=== PATIENT | female | born 1960 | race Caucasian/White ===

== ENCOUNTER 2017-03-06 18:10 | Emergency (ER) | payer OTHER ==
[~2017-03-06] VITALS: Ht 157.5 cm; Wt 68.8 kg
[~2017-03-06 18:10] MED LIST: ACETAMIN OR; ACTOS30 MG OR; AMOXICILLIN500 MG PO; ATENOLOL50 MG OR; AUGMENTIN875 MG OR; AUGMENTIN875TAB PO; BABY ASPIRIN81 MG OR; FLAGYL500 MG OR; FLEXERIL5 M1 PO; GLIMEPIRIDE4 MG PO; INVOKANA100 MG PO; LANTUS100 MG/ML SC; LEVOTHROID137 MCG PO; LEVOTHYROXIN125 MCG PO; LORTAB 5 OR; LORTAB 7.5 OR; LORTAB5 PO; MEDDOSEPAK PO; METFORMIN500 M1 OR; METFORMIN500 MG OR; NOVOLIN 70/30 SC; NOVOLIN 701000 UNITS SC; NOVOLIN R IJ; OMEPRAZOLE20 MG PO; PERCOCET 5/325M1 TAB OR; PREVACID30 M1 OR; RELION 70/30 SC; SIMVASTATIN40 MG PO; TYLENOL OR; ULTRAM50 M1 PO; ULTRAM50 MG PO; ZESTRIL10 M1 OR; ZOFRAN ODT8 MG OR; ZPAK OR
[2017-03-06] MEDS ORDERED: LEVOTHYROXIN137 MCG PO (18:22)
[2017-03-06] MEDS ORDERED: INVOKANA300 MG (18:24)
[2017-03-06] MEDS ORDERED: CYCLOBENZAPR10 MG PO (18:25)
[2017-03-06] MEDS ORDERED: ROPINIROLE0.5 MG PO (18:25)
[2017-03-06] MEDS ORDERED: SEPTRA4001 PO (18:59)
[2017-03-06] MEDS ORDERED: AUGMENTIN875TAB PO (18:59)
[2017-03-06] MEDS ORDERED: TORADOL PO (18:59)
[2017-03-06 19:31] VITALS: BP 128/76
== END 2017-03-06 19:39 | disposition home or self-care (01) | DRG 603 ==
LOC: ED 18:10
DX: L02.224 Furuncle of groin (principal)

== ENCOUNTER 2018-05-13 12:08 | Emergency (ER) | payer OTHER ==
[~2018-05-13] VITALS: Ht 157.5 cm; Wt 66.0 kg
[~2018-05-13 12:08] MED LIST changes: +CYCLOBENZAPR10 MG PO; +INVOKANA300 MG; +LEVOTHYROXIN137 MCG PO; +ROPINIROLE0.5 MG PO; +SEPTRA4001 PO; +TORADOL PO
[2018-05-13] MEDS ORDERED: METOPROL TAR25 MG PO (12:24)
[2018-05-13 12:57] LABS: URINE BILIRUBIN - DIPSTICK NEGATIVE (NEGATIVE); URINE BLOOD DIPSTICK NEGATIVE (NEGATIVE); URINE COLOR YELLOW; URINE GLUCOSE - DIPSTICK >=1000 mg/dL (NEGATIVE); URINE KETONE TRACE mg/dL (NEGATIVE); URINE LEUK ESTERASE NEGATIVE (NEGATIVE); URINE NITRITE - DIPSTICK NEGATIVE (Negative); URINE PH 6.5 (4.5-8.0); URINE PROTEIN - DIPSTICK NEGATIVE (NEG-TRACE); URINE UROBILINOGEN - DIPSTICK 0.2 E.U./dL (0.2)
[2018-05-13 13:13] LABS: HEMATOCRIT 35.6 % (37.0-47.0); IMMATURE GRANULOCYTES 0.9 % (0.0-5.0); MEAN CELL VOLUME 84.2 fL CALC (80.0-100.0); MEAN CORPUSCULAR HGB 28.4 pG CALC (26.0-32.0); MEAN CORPUSCULAR HGB CONC 33.7 g/L CALC (32.0-36.0); NEUT# 3.39 thou/uL (2.00-7.15); RED BLOOD COUNT 4.23 mill/uL (4.20-5.60); RED CELL DISTRI WIDTH 13.1 % (11.5-15.5)
[2018-05-13 13:25] LABS: ALBUMIN 4.3 g/dL (3.2-5.0); ALKALINE PHOSPHATASE 102 u/l (38-126); ANION GAP 20 (6-22 (CALC)); BILIRUBIN, TOTAL 0.6 mg/dL (0.0-1.4); BUN 22 mg/dL (7-17); BUN/CREATININE RATIO 33 (12-20 (CALC)); CARBON DIOXIDE 20 mmol/l (22-30); CHLORIDE 101 mmol/l (95-108); CREATININE 0.6 mg/dL (0.5-1.0); GFR > 60 ML/MIN (>=60 (CALC)); GFR FOR AFR.AMER. > 60 ML/MIN (>=60 (CALC)); POTASSIUM 4.4 mmol/l (3.5-5.1); SGOT/AST 46 u/l (14-36); SODIUM 137 mmol/l (137-146); TOTAL PROTEIN 8.2 g/dL (6.3-8.2)
[2018-05-13 13:36] LABS: MYOGLOBIN 163 ng/mL (0 - 62)
[2018-05-13 16:09] LABS: BARBITURATES NEGATIVE (NEGATIVE); COCAINE NEGATIVE (NEGATIVE); METHADONE NEGATIVE (NEGATIVE); OXCYCODONE NEGATIVE (NEGATIVE); TETRAHYDROCANNABIONOL NEGATIVE (NEGATIVE); TRICYLIC ANTIDEPRESSANTS POSITIVE (NEGATIVE)
[2018-05-13] MEDS ORDERED: ANTIVERT PO (17:26)
[2018-05-13 17:38] VITALS: BP 125/75
== END 2018-05-13 17:38 | disposition home or self-care (01) | DRG 607 ==
LOC: ED 12:08 → ED-I 14:38 → ED 17:38
DX: R21 Rash and other nonspecific skin eruption (principal); F41.9 Anxiety disorder, unspecified; H81.09 Meniere's disease, unspecified ear; I10 Essential (primary) hypertension; E11.9 Type 2 diabetes mellitus without complications; Z95.5 Presence of coronary angioplasty implant and graft
CPT/HCPCS: J2060; Q9967

== ENCOUNTER 2019-01-18 00:03 | Emergency (ER) | payer OTHER ==
[~2019-01-18] VITALS: Ht 157.5 cm; Wt 68.2 kg
[~2019-01-18 00:03] MED LIST changes: +ANTIVERT PO; +METOPROL TAR25 MG PO
[2019-01-18 01:09] LABS: IMMATURE GRANULOCYTES 0.2 % (0.0-5.0); MEAN CORPUSCULAR HGB 23.9 pG CALC (26.0-32.0); MEAN CORPUSCULAR HGB CONC 30.8 g/L CALC (32.0-36.0); NEUT# 2.74 thou/uL (2.00-7.15); RED BLOOD COUNT 3.52 mill/uL (4.20-5.60); RED CELL DISTRI WIDTH 16.6 % (11.5-15.5)
[2019-01-18 01:10] LABS: HEMATOCRIT 27.3 % (37.0-47.0); HEMOGLOBIN 8.4 g/dl (12.0-16.0); MEAN CELL VOLUME 77.6 fL CALC (80.0-100.0)
[2019-01-18 01:26] LABS: ALKALINE PHOSPHATASE 85 u/l (38-126); ANION GAP 15 (6-22 (CALC)); BUN 24 mg/dL (8-23); BUN/CREATININE RATIO 22 (12-20 (CALC)); CARBON DIOXIDE 24 mmol/l (22-30); CHLORIDE 103 mmol/l (95-108); CREATININE 1.1 mg/dL (0.5-1.0); GFR 50 ML/MIN (>=60 (CALC)); GFR FOR AFR.AMER. > 60 ML/MIN (>=60 (CALC)); POTASSIUM 4.5 mmol/l (3.5-5.1); SGOT/AST 35 u/l (9-36); SODIUM 138 mmol/l (137-146); TOTAL PROTEIN 7.2 g/dL (6.3-8.2)
[2019-01-18 01:27] LABS: BILIRUBIN, TOTAL 0.2 mg/dL (0.0-1.4)
[2019-01-18] MEDS ORDERED: FERROUS SULF325 M3 PO (02:19)
[2019-01-18] MEDS ORDERED: TORADOL PO (02:19)
[2019-01-18] MEDS ORDERED: ELAVIL50 MG PO (02:19)
[2019-01-18 02:40] VITALS: BP 110/60
== END 2019-01-18 02:40 | disposition home or self-care (01) | DRG 74 ==
LOC: ED 00:03
PROVIDERS: Family Medicine
DX: E11.42 Type 2 diabetes mellitus with diabetic polyneuropathy (principal); Z79.84 Long term (current) use of oral hypoglycemic drugs; D64.9 Anemia, unspecified; M79.672 Pain in left foot; M79.671 Pain in right foot

== ENCOUNTER 2019-06-09 | Emergency (ER) | payer SELFPAY ==
[~2019-06-09] MED LIST changes: +ELAVIL50 MG PO; +FERROUS SULF325 M3 PO; +GABAPENTIN100 MG PO; +HYDROXYZINE HCL25 M1 PO; +OZEMPIC2 MG/1.5 M; +TRAZODONE50 MG PO
[2019-06-09] MEDS ORDERED: ULTRAM50 M1 PO (22:33)
== END 2019-06-09 22:44 | disposition home or self-care (01) | DRG 605 ==
DX: S50.02XA Contusion of left elbow, initial encounter (principal); S20.212A Contusion of left front wall of thorax, initial encounter; I10 Essential (primary) hypertension; E11.9 Type 2 diabetes mellitus without complications; W01.0XXA Fall on same level from slipping, tripping and stumbling without subsequent striking against object, initial encounter; Y92.481 Parking lot as the place of occurrence of the external cause; Z79.84 Long term (current) use of oral hypoglycemic drugs

== ENCOUNTER 2019-08-11 21:20 | Inpatient (IN) | payer OTHER ==
[~2019-08-11] VITALS: Ht 157.5 cm; Wt 60.0 kg
--- NOTE | 2019-08-11 21:30 | NUR ---
TO ROOM 15 VIA W/C. AT BEDSIDE
--- NOTE | 2019-08-11 22:00 | NUR ---
ANSWERING QUESTIONS. PT GIVING LITTLE INFORMATION
--- NOTE | 2019-08-11 22:40 | NUR ---
IV STARTED IN LEFT HAND BUT WILL NOT DRAW BLOOD. FLUIDS AND MEDICATION INITIATED IN SITE. TOLERATING MEDICATION WELL
--- NOTE | 2019-08-11 23:10 | NUR ---
PT TALKATIVE AND MUCH MORE ACTIVE SINCE LEFT
[2019-08-11 23:59] LABS: HEMATOCRIT 33.1 % (37.0-47.0); HEMOGLOBIN 10.9 g/dl (12.0-16.0); IMMATURE GRANULOCYTES 1.9 % (0.0-5.0); MEAN CELL VOLUME 82.3 fL CALC (80.0-100.0); MEAN CORPUSCULAR HGB 27.1 pG CALC (26.0-32.0); MEAN CORPUSCULAR HGB CONC 32.9 g/dL CAL (32.0-36.0); NEUT# 17.29 thou/uL (2.00-7.15); RED BLOOD COUNT 4.02 mill/uL (4.20-5.60); RED CELL DISTRI WIDTH 13.2 % (11.5-15.5)
--- NOTE | 2019-08-12 00:10 | NUR ---
BEDRESTING. AWAITING CT OF HEAD
[2019-08-12 00:17] LABS: URINE BILIRUBIN - DIPSTICK NEGATIVE (NEGATIVE); URINE BLOOD DIPSTICK TRACE-INTACT (NEGATIVE); URINE COLOR YELLOW; URINE GLUCOSE - DIPSTICK >=1000 mg/dL (NEGATIVE); URINE KETONE 40 mg/dL (NEGATIVE); URINE LEUK ESTERASE NEGATIVE (NEGATIVE); URINE NITRITE - DIPSTICK NEGATIVE (Negative); URINE PROTEIN - DIPSTICK NEGATIVE (NEG-TRACE); URINE SPECIFIC GRAVITY 1.015; URINE UROBILINOGEN - DIPSTICK 0.2 E.U./dL (0.2)
[2019-08-12 00:18] LABS: BARBITURATES NEGATIVE (NEGATIVE); COCAINE NEGATIVE (NEGATIVE); METHADONE NEGATIVE (NEGATIVE); OXCYCODONE NEGATIVE (NEGATIVE); TETRAHYDROCANNABIONOL NEGATIVE (NEGATIVE); TRICYLIC ANTIDEPRESSANTS POSITIVE (NEGATIVE)
[2019-08-12 00:24] LABS: ALBUMIN 3.8 g/dL (3.2-5.0); AMYLASE 37 u/l (30-110); BUN 13 mg/dL (8-23); BUN/CREATININE RATIO 32 (12-20 (CALC)); CARBON DIOXIDE 22 mmol/l (22-30); CHLORIDE 95 mmol/l (95-108); CREATININE 0.4 mg/dL (0.5-1.0); ETHYL ALCOHOL 0 mg/dl (0-30); GFR > 60 ML/MIN (>=60 (CALC)); GFR FOR AFR.AMER. > 60 ML/MIN (>=60 (CALC)); LIPASE 131 u/l (23-300); POTASSIUM 4.1 mmol/l (3.5-5.1); SGOT/AST 54 u/l (9-36); TOTAL PROTEIN 7.2 g/dL (6.3-8.2)
[2019-08-12 00:30] LABS: ALKALINE PHOSPHATASE 169 u/l (38-126); ANION GAP 17 (6-22 (CALC)); BILIRUBIN, TOTAL 0.7 mg/dL (0.0-1.4); SODIUM 130 mmol/l (137-146)
--- NOTE | 2019-08-12 00:46 | NUR ---
DRANK A CUP OF WATER-TOLERATED WELL
--- NOTE | 2019-08-12 01:38 | NUR ---
UNABLE TO TELL WHAT MEDICATIONS SHE TAKES. DOES NOT HAVE A LIST
--- NOTE | 2019-08-12 02:00 | NUR ---
HAD FORMED BOWEL MOVEMENT-BROWN IN COLOR. MIXED IN WITH URINE. UNABLE TO OBTAIN SPECIMEN
--- NOTE | 2019-08-12 03:40 | NUR ---
REPORT CALLED TO MOUNIKA
--- NOTE | 2019-08-12 03:43 | NUR ---
TO ON TELEMETRY
--- NOTE | 2019-08-12 05:30 | NUR ---
PATIENT ADMITTED FROM ER VIA STRETCHER WITH ER STAFF IN ATTENDANCE. PATIENT IS AWAKE ALERT AND ORIENTEDX3. PATIENT IS ON ISOLATION PRECAUTIONS. PATIENT ADMITTED FOR COLITIS, N/V TODAY, SOME DIARRHEA. PATIENT RECENTLY TRAVELED TO [facility] WITH HER AND STATES THAT SHE GOT "FOOD POISONING". SAW DOCTOR THERE AND WAS GIVEN MEDICATIONS. DOES'NT KNOW THE NAME OF THE MEDICATIONS. PATIENT IS ON CLEAR LIQUIDS AT THIS TIME AND PROVIDED WITH H20 AT BEDSIDE. PATIENT WITH SALINE LOCK TO LEFT HAND WITH IVF PATENT AND INFUSING AT 125CC/HR. SITE IS HEALTHY. PATIENT WITH SALINE LOCK TO RIGHT FOREARM. SITE IS HEALTHY. TELE MONITOR IN PLACE. LAB WORK WAS DRAWN ORDERED. ORIENTED TO ROOM AND SURROUNDINGS. INSTRUCTED ON USE OF THE NURSE CALL LIGHT SYSTEM, TV REMOTE AND PHONE. SAFETY PRECAUTIONS REINFORCED. INSTRUCTED ON NEED FOR SPUTUM AND STOOL SPEC WHEN ABLE TO PROVIDE. WILL CONT TO MONITOR.
[2019-08-12 05:31] LABS: HEMATOCRIT 32.9 % (37.0-47.0); HEMOGLOBIN 10.5 g/dl (12.0-16.0); MEAN CORPUSCULAR HGB 27.1 pG CALC (26.0-32.0); MEAN CORPUSCULAR HGB CONC 31.9 g/dL CAL (32.0-36.0); NEUT# 14.4 thou/uL (2.00-7.15); RED BLOOD COUNT 3.87 mill/uL (4.20-5.60); RED CELL DISTRI WIDTH 13.4 % (11.5-15.5)
--- NOTE | 2019-08-12 07:05 | NUR ---
REPORT RECEIVED FROM JENNYFER RIBERA
[2019-08-12 08:20] VITALS: BP 121/58
--- NOTE | 2019-08-12 08:20 | NUR ---
PT RESTING IN SEMI FOWLERS POSITION,A&O X3;VS OBTAINED AND ASSESSMENT COMPLETED;PT REPORTS ABDOMINAL PAIN RATING 7/10 ON THE PAIN SCALE AND NAUSEA AND REQUESTS MEDICATION,CHERELLE LEE TO BE NOTIFIED;RESPIRATIONS EVEN AND UNLABORED ON RA,CLEAR LUNG SOUNDS;ABDOMEN SOFT ON PALPATION AND ACTIVE IN ALL 4 QUADRANTS;STRONG PEDAL PULSES;SKIN INTACT;TELE MONITORING IN PLACE;#22G TO RFA INFUSING NS WITH EASE PER ORDER,#20G TO LEFT HAND FLUSHED AND PATENT;ACCUCHECK 312;PT DENIES ANY ADDITIONAL NEEDS AT THIS TIME;ENCOURAGED TO CALL FOR ASSISTANCE IF NEEDED;FALL PRECAUTIONS IN PLACE WITH CALL LIGHT IN REACH;WILL CONTINUE TO MONITOR
--- NOTE | 2019-08-12 09:35 | NUR ---
PT MEDICATED WITH PRN DILAUDID 1MG AND ZOFRAN 4MG IVP FOR NAUSEA AND ABDOMINAL PAIN RATING 7/10 ON THE PAIN SCALE,WILL CONTINUE TO MONITOR FOR EFFECTIVENESS
--- NOTE | 2019-08-12 11:30 | NUR ---
PT RESTING IN SEMI FOWLERS POSITION;RESPIRATIONS EVEN AND UNLABORED ON RA;PT REPORTS THAT PAIN HAS DECREASED SINCE PAIN MEDICATION ADMINISTRATION;TELE MONITORING IN PLACE;IV FLUIDS INFUSING WITH EASE AND ABX ADMINISTERED AT THIS TIME;ACCUCHECK 261, PT COVERED WITH SLIDING SCALE NOVOLOG PER ORDER;ASSESSMENT REMAINS UNCHANGED AT THIS TIME;PT ENCOURAGED TO CALL FOR ASSISTANCE IF NEEDED;FALL PRECAUTIONS IN PLACE WITH CALL LIGHT IN REACH;WILL CONTINUE TO MONITOR
--- NOTE | 2019-08-12 11:56 | NUR ---
AT BEDSIDE DISCUSSING POC.
[2019-08-12 12:00] VITALS: BP 98/51
[2019-08-12] MEDS ORDERED: LOPRESSOR50 M1 PO (13:12)
[2019-08-12] MEDS ORDERED: TRAZODONE50 MG PO (13:17)
[2019-08-12] MEDS ORDERED: CYCLOBENZAPR10 MG PO (13:18)
[2019-08-12] MEDS ORDERED: METFORMIN HYD1000 MG PO (13:19)
[2019-08-12] MEDS ORDERED: PRAVASTATIN80 MG PO (13:21)
[2019-08-12] MEDS ORDERED: LEVOTHYROXIN175 MC1 PO (13:21)
[2019-08-12] MEDS ORDERED: OMEPRAZOLE DR40 MG PO (13:24)
[2019-08-12] MEDS ORDERED: HYDROXYZ HCL25 MG PO (13:25)
[2019-08-12] MEDS ORDERED: LISINOPRIL20 M1 PO (13:26)
--- NOTE | 2019-08-12 15:15 | NUR ---
PT RESTING IN SEMI FOWLERS POSITION;RESPIRATIONS EVEN AND UNLABORED ON RA;PT REPORTS ABDOMINAL PAIN AND NAUSEA RATING 8/10 ON THE PAIN SCALE AND REQUESTS MEDICATION,PT TO BE MEDICATED WITH PRN DILAUDID 1MG AND ZOFRAN 4MG IVP;IV FLUIDS CONTINUE TO INFUSE WITH EASE;TELE MONITORING IN PLACE;PT DENIES ANY ADDITIONAL NEEDS AND IS ENCOURAGED TO CALL FOR ASSISTANCE IF NEEDED;CALL LIGHT IN REACH;WILL CONTINUE TO MONITOR
[2019-08-12 16:00] VITALS: BP 111/57
[2019-08-12 18:57] VITALS: BP 100/46
--- NOTE | 2019-08-12 21:58 | NUR ---
PATIENT RESTING IN BED AT THIS TIME-AWAKE ALERT AND ORIENTEDX3 WATCHING TV. PATIENT IS ON ISOLATION. IVF LR PATENT AND INFUSING VIA LEFT HAND SITE AT 125CC/HR. SITE IS HEALTHY. SALINE LOCK TO RIGHT FOREARM IS INTACT AND HEALTHY. TELE MONITOR IN PLACE. PATIENT STATES THAT SHE DID HAVE BMTHIS MORNING BUT STOOL SPEC WAS NOT COLLECTED. REINFORCED WITH PATIENT NEED FOR STOOL AND SPUTUM SPEC. ABD IS SOFT. BS+- LUNGS CLEAR. DRY NON-PRODUCTIVE COUGH. PATIENT ASKING FOR CRACKERS-EXPLAINED THAT SHE IS STILL ONLY ON CLEAR LIQUIDS. ACCU-CHECK WAS 266. COVERED WITH 5UNITS OF NOVALOG PER SS COVERAGE SCALE. PROVIDED WITH GATORADE AND JELLO FOR HS SNACK. MEDICATED FOR 8/10 PAIN SCALE WITH DILAUDID 1MG IVP AND FOR NAUSEA WITH ZOFRAN 4MG IVP. VOIDING QS IN BR CLEAR YELLOW URINE. SAFETY PRECAUTIONS REINFORCED. CALL LIGHT IN REACH. WILL CONT TO MONITOR.
[2019-08-12 23:38] VITALS: BP 118/58
--- NOTE | 2019-08-13 00:15 | NUR ---
PATIENT RESTING IN BED-AWAKE AND ALERT. ASKING FOR MORE JELLO AND WAS PROVIDED FOR HER. IVF PATENT AND INFUSING VIA LEFT HAND IV SITE AT 125CC/HR. SITE REMAINS HEALTHY. PEPPER HUIZAR ORDERED. TELE MONITOR IN PLACE. CALL LIGHT IN REACH. WILL CONT TO MONITOR.
[2019-08-13 03:16] VITALS: BP 117/52
--- NOTE | 2019-08-13 05:15 | NUR ---
PATIENT RESTING IN BED-C/O ABD PAIN-8/10 ON PAIN SCALE. MEDICATED WITH DILAUDID 1MG IVP AND WITH ZOFRAN 4MG IVP FOR NAUSEA. TELE MONITOR IN PLACE. IVF PATENT ANDINFUSING IA LEFT HAND SITE. CALL LIGHT INREACH. WILL CONT TO MONITOR.
[2019-08-13 06:06] LABS: HEMATOCRIT 28.7 % (37.0-47.0); HEMOGLOBIN 9.3 g/dl (12.0-16.0); MEAN CELL VOLUME 83.4 fL CALC (80.0-100.0); MEAN CORPUSCULAR HGB CONC 32.4 g/dL CAL (32.0-36.0); RED BLOOD COUNT 3.44 mill/uL (4.20-5.60); RED CELL DISTRI WIDTH 13.7 % (11.5-15.5)
[2019-08-13 06:17] LABS: ANION GAP 10 (6-22 (CALC)); BUN 6 mg/dL (8-23); BUN/CREATININE RATIO 19 (12-20 (CALC)); CARBON DIOXIDE 25 mmol/l (22-30); CHLORIDE 101 mmol/l (95-108); CREATININE 0.3 mg/dL (0.5-1.0); GFR > 60 ML/MIN (>=60 (CALC)); GFR FOR AFR.AMER. > 60 ML/MIN (>=60 (CALC)); SODIUM 131 mmol/l (137-146)
[2019-08-13 06:18] LABS: MAGNESIUM 1.8 mg/dL (1.6-2.3)
--- NOTE | 2019-08-13 07:05 | NUR ---
REPORT RECEIVED FROM JENNYFER RIBERA
--- NOTE | 2019-08-13 08:00 | NUR ---
PT RESTING IN SEMI FOWLERS POSITION WATCHING TV,A&O X3;VS OBTAINED AND ASSESSMENT COMPLETED;PT DENIES ANY CURRENT PAIN OR DISCOMFORTS,PAIN SCALE AND REPORTING EDUCATED;RESPIRATIONS EVEN AND UNLABORED ON RA,CLEAR LUNG SOUNDS;ABDOMEN SOFT ON PALPATION AND ACTIVE IN ALL 4 QUADRANTS,TENDERNESS NOTED;STRONG PEDAL PULSES;SKIN INTACT;TELE MONITORING IN PLACE;#20G TO RFA FLUSHED AND PATENT,#20G TO LH INFUSING LR @ 100ML/HR,BOTH SITES APPEAR HEALTHY;ACCUCHECK 292, PT TO BE COVERED WITH SLIDING SCALE NOVOLOG PER ORDER;PT DENIES ANY ADDITIONAL NEEDS AT THIS TIME AND IS ENCOURAGED TO CALL FOR ASSISTANCE IF NEEDED;FALL PRECAUTIONS IN PLACE WITH CALL LIGHT IN REACH;WILL CONTINUE TO MONITOR
[2019-08-13 08:02] VITALS: BP 111/51
--- NOTE | 2019-08-13 09:45 | NUR ---
AT BEDSIDE DISCUSSING POC WITH PT.
[2019-08-13 11:42] VITALS: BP 132/72
--- NOTE | 2019-08-13 11:50 | NUR ---
PT RESTING IN SEMI FOWLERS POSITION WATCHING TV,MEAL TRAY PROVIDED AND WAS ADVANCED PER ORDER TO FULL LIQUID DIABETIC;RESPIRATIONS EVEN AND UNLABORED ON RA;PT DENIES ANY CURRENT PAIN OR NAUSEA;TELE MONITORING IN PLACE;IV FLUIDS INFUSING WITH EASE;1200CC OF CLEAR/YELLOW URINE EMPTIED FROM HAT AT THIS TIME;ACCUCHECK 217, PT COVERED WITH SLIDING SCALE INSULIN WELL LEVEMIR PER ORDER;PT DENIES ANY ADDITIONAL NEEDS AT THIS TIME;ASSESSMENT REMAINS UNCHANGED;ENCOURAGED TO CALL FOR ASSISTANCE IF NEEDED;CALL LIGHT IN REACH;WILL CONTINUE TO MONITOR
[2019-08-13 15:19] VITALS: BP 103/55
--- NOTE | 2019-08-13 15:30 | NUR ---
PT RESTING IN SEMI FOWLERS POSITION;RESPIRATIONS EVEN AND UNLABORED ON RA;PT DENIES ANY CURRENT PAIN OR DISCOMFORTS;IV SITE TO LEFT HAND NOTED TO BE INFILTRATED,SITE REMOVED WITH CATHETER INTACT;IV FLUIDS RESTARTED TO RFA;TELE MONITORING IN PLACE;PT DENIES ANY ADDITIONAL NEEDS AND IS ENCOURAGED TO CALL FOR ASSISTANCE IF NEEDED;CALL LIGHT IN REACH;WILL CONTINUE TO MONITOR
[2019-08-13 20:22] VITALS: BP 133/63
--- NOTE | 2019-08-13 20:30 | NUR ---
PATIENT RESTING IN BED AT THIS TIME-AWAKE ALERT AND ORIENTEDX3. PATIENT IS C/O AND PAIN 8/10 ON PAIN SCALE AND NAUSEA. MEDICATED WITH DILAUDID 1MG IVP FOR PAIN AND WITH ZOFRAN FOR NAUSEA. PATIENT STATES THAT SHE DID HAVE BM TODAY-SPEC WERE SENT TO LAB. HAD DIAB DIET AT DINNER AND TOLERATED FAIR-NOW WITH PAIN. IV SITE TO RIGHT FOREARM INTACT WITH IVF LR PATENT AND INFUSING AT 100CC/HR. ABD IS SOFT WITH ACTIVE BS. LUNGS ARE CLEAR. NO PEDAL EDEMA. PULSE ARE PALPABLE. UI-[id number] WITH NOVALOG 5UNITS SQ PER SS COVERAGE SCALE. PROVIDED WITH CEREAL BAR FOR SNACK. ISOLATION PRECAUTIONS IN PLACE-TESTED FOR COVID 19-AWAITING RESULTS. DRY COUGH, TELE MONITOR IN PLACE. SAFTY PRECAUTIONS REINFORCED. CALL LIGHT IN REACH. WILL CONT TO MONITOR.
[2019-08-13 23:43] VITALS: BP 113/62
--- NOTE | 2019-08-14 00:34 | NUR ---
PATIENT RESTING IN BED-C/O SEVERE ABD PAIN-9/10 ON PAIN SCALE. COMES AND GOES. MEDICATED WITH DILAUDID 1MG IVP FOR ABD PAIN. ZOSYN FINISHED AND IVF LR PATENT AND INFUSING VIA RIGHT FA SITE AT 100CC/HR. TELE MONITOR IN PLACE. SAFETY PRECAUTIONS REINFORCED. CALL LIGHT IN REACH. WILL CONT TO MONITOR.
--- NOTE | 2019-08-14 04:00 | NUR ---
PATIENT APPEARS SLEEPING AT THIS TIME WITH EYES CLOSED. RESPS ARE EVEN AND UNLABORED. TELE MONITOR INPLACE. CALL LIGHT IN REACH. WILL CONT TO MONITOR.
[2019-08-14 04:45] VITALS: BP 101/59
[2019-08-14 05:45] LABS: HEMATOCRIT 30.9 % (37.0-47.0); HEMOGLOBIN 9.8 g/dl (12.0-16.0); MEAN CELL VOLUME 85.1 fL CALC (80.0-100.0); MEAN CORPUSCULAR HGB CONC 31.7 g/dL CAL (32.0-36.0); RED BLOOD COUNT 3.63 mill/uL (4.20-5.60); RED CELL DISTRI WIDTH 13.7 % (11.5-15.5)
[2019-08-14 05:59] LABS: ALBUMIN 3.2 g/dL (3.2-5.0); ALKALINE PHOSPHATASE 120 u/l (38-126); ANION GAP 12 (6-22 (CALC)); BUN 8 mg/dL (8-23); BUN/CREATININE RATIO 19 (12-20 (CALC)); CARBON DIOXIDE 27 mmol/l (22-30); CHLORIDE 99 mmol/l (95-108); CREATININE 0.4 mg/dL (0.5-1.0); GFR > 60 ML/MIN (>=60 (CALC)); GFR FOR AFR.AMER. > 60 ML/MIN (>=60 (CALC)); MAGNESIUM 1.6 mg/dL (1.6-2.3); SGOT/AST 29 u/l (9-36); SODIUM 134 mmol/l (137-146); TOTAL PROTEIN 6.3 g/dL (6.3-8.2)
[2019-08-14 06:01] LABS: BILIRUBIN, TOTAL 0.3 mg/dL (0.0-1.4)
--- NOTE | 2019-08-14 07:15 | NUR ---
REPORT RECEIVED FROM JENNYFER RIBERA. PT RESTING IN BED SEMI FOWLERS WITH EYES CLOSED; AWAKENS TO TACTILE STIMULI. ALERT AND ORIENTED. C/O 7/10 ABDOMINAL PAIN. RESPIRATIONS EVEN AND UNLABORED ON ROOM AIR. IV FLUIDS INFUSING WITHOUT DIFFICULTY; IV SITE APPEARS HEALTHY. PLAN OF CARE REVIEWED. PT ENCOURAGED TO VERBALIZE CONCERNS. STATES UNDERSTANDING. SAFETY MEASURES IN PLACE. CALL LIGHT WITHIN REACH.
[2019-08-14 08:30] VITALS: BP 121/55
--- NOTE | 2019-08-14 09:15 | NUR ---
DILAUDID GIVEN FOR ABDOMINAL PAIN. PT AMBULATED TO BATHROOM TO VOID SMALL CLEAR YELLOW URINE. INDEPENDENT IN ROOM.
[2019-08-14 11:25] VITALS: BP 119/60
[2019-08-14] MEDS ORDERED: LEVEMIR100 UNIT/M SC (11:51)
[2019-08-14] MEDS ORDERED: METRONIDAZOL500 MG PO (11:51)
[2019-08-14] MEDS ORDERED: CIPROFLOXACN500 MG PO (11:51)
--- NOTE | 2019-08-14 12:40 | NUR ---
DISCUSSED DISCHARGE WITH PT AND EDUCATED ON ADMINISTRATION OF LEVEMIR INJECTION. PT VERBALIZES UNDERSTANDING AND REPORTS THAT HE USED TO GIVE HER SELF MEDICAL INJECTIONS IN THE PAST.
--- NOTE | 2019-08-14 13:10 | NUR ---
IV site discontinued, cath intact. No edema , no redness, voices no discomfort.
--- NOTE | 2019-08-14 13:15 | NUR ---
Discharge instructions given. Patient verbalizes understanding of same. Discharged in stable condition via Wheelchair to Home with family. All belongings sent with pt.
== END 2019-08-14 13:15 | disposition home or self-care (01) | DRG 373 ==
LOC: ED 21:20 → ED-I 08-12 02:31 → ED 08-12 02:50 → MS2 08-12 02:51
PROVIDERS: Internal Medicine; Nurse Practitioner Family; ADMIT Internal Medicine; ATTEND Internal Medicine
DX: A03.3 Shigellosis due to Shigella sonnei (principal); I10 Essential (primary) hypertension; E11.65 Type 2 diabetes mellitus with hyperglycemia; E11.42 Type 2 diabetes mellitus with diabetic polyneuropathy; E03.9 Hypothyroidism, unspecified; E78.5 Hyperlipidemia, unspecified; I25.10 Atherosclerotic heart disease of native coronary artery without angina pectoris; G25.81 Restless legs syndrome; Z95.5 Presence of coronary angioplasty implant and graft; Z85.41 Personal history of malignant neoplasm of cervix uteri; Z79.84 Long term (current) use of oral hypoglycemic drugs; Z20.828 Contact with and (suspected) exposure to other viral communicable diseases
CPT/HCPCS: J1650; J3475; S0164

== ENCOUNTER 2020-03-29 23:58 | Emergency (ER) | payer OTHER ==
[~2020-03-29] VITALS: Ht 157.5 cm; Wt 65.5 kg
[~2020-03-29 23:58] MED LIST changes: +CIPROFLOXACN500 MG PO; +HYDROXYZ HCL25 MG PO; +LEVEMIR100 UNIT/M SC; +LEVOTHYROXIN175 MC1 PO; +LISINOPRIL20 M1 PO; +LOPRESSOR50 M1 PO; +METFORMIN HYD1000 MG PO; +METRONIDAZOL500 MG PO; +OMEPRAZOLE DR40 MG PO; +PRAVASTATIN80 MG PO
[2020-03-30 01:53] LABS: HEMATOCRIT 31.8 % (37.0-47.0); HEMOGLOBIN 9.7 g/dl (12.0-16.0); IMMATURE GRANULOCYTES 0.2 % (0.0-5.0); MEAN CORPUSCULAR HGB 24.1 pG CALC (26.0-32.0); MEAN CORPUSCULAR HGB CONC 30.5 g/dL CAL (32.0-36.0); NEUT# 2.7 thou/uL (2.00-7.15); RED BLOOD COUNT 4.03 mill/uL (4.20-5.60); RED CELL DISTRI WIDTH 14.8 % (11.5-15.5)
[2020-03-30 01:54] LABS: MEAN CELL VOLUME 78.9 fL CALC (80.0-100.0)
[2020-03-30 02:12] LABS: ALKALINE PHOSPHATASE 115 u/l (38-126); ANION GAP 17 (6-22 (CALC)); BILIRUBIN, TOTAL 0.3 mg/dL (0.0-1.4); BUN 19 mg/dL (8-23); BUN/CREATININE RATIO 27 (12-20 (CALC)); CARBON DIOXIDE 23 mmol/l (22-30); CHLORIDE 98 mmol/l (95-108); CREATININE 0.7 mg/dL (0.5-1.0); GFR > 60 ML/MIN (>=60 (CALC)); GFR FOR AFR.AMER. > 60 ML/MIN (>=60 (CALC)); POTASSIUM 4.5 mmol/l (3.5-5.1); SGOT/AST 46 u/l (9-36); SODIUM 133 mmol/l (137-146); TOTAL PROTEIN 7.4 g/dL (6.3-8.2)
[2020-03-30 02:20] LABS: ALBUMIN 4.1 g/dL (3.2-5.0)
[2020-03-30] MEDS ORDERED: GABAPENTIN100 MG PO (03:44)
[2020-03-30] MEDS ORDERED: LORTAB 1010 MG PO (05:50)
[2020-03-30 06:00] VITALS: BP 137/75
== END 2020-03-30 06:00 | disposition home or self-care (01) | DRG 74 ==
LOC: ED 23:58
PROVIDERS: Emergency Medicine
DX: E11.42 Type 2 diabetes mellitus with diabetic polyneuropathy (principal); E11.65 Type 2 diabetes mellitus with hyperglycemia; I10 Essential (primary) hypertension; Z79.84 Long term (current) use of oral hypoglycemic drugs

== ENCOUNTER 2020-07-04 12:05 | Emergency (ER) | payer OTHER ==
[~2020-07-04] VITALS: Ht 157.5 cm; Wt 65.0 kg
[~2020-07-04 12:05] MED LIST changes: +LORTAB 1010 MG PO
[2020-07-04] MEDS ORDERED: ATORVASTATIN CA40 MG PO (12:27)
[2020-07-04] MEDS ORDERED: GABAPENTIN300 M2 PO (12:27)
[2020-07-04 13:49] VITALS: BP 131/70
== END 2020-07-04 13:50 | disposition home or self-care (01) | DRG 605 ==
LOC: ED 12:05
DX: S20.211A Contusion of right front wall of thorax, initial encounter (principal); E11.9 Type 2 diabetes mellitus without complications; I10 Essential (primary) hypertension; W18.11XA Fall from or off toilet without subsequent striking against object, initial encounter; Y92.002 Bathroom of unspecified non-institutional (private) residence as the place of occurrence of the external cause; Z79.84 Long term (current) use of oral hypoglycemic drugs

== ENCOUNTER 2020-10-14 17:17 | Observation (INO) | payer SELFPAY ==
[~2020-10-14] VITALS: Ht 157.5 cm; Wt 67.0 kg
[~2020-10-14 17:17] MED LIST changes: +ATORVASTATIN CA40 MG PO; +GABAPENTIN300 M2 PO
--- NOTE | 2020-10-14 17:29 | NUR ---
WHEELED TO THE ROOM, STATES PAIN IS IMPROVING
[2020-10-14 17:58] LABS: HEMATOCRIT 33.8 % (37.0-47.0); HEMOGLOBIN 10.7 g/dl (12.0-16.0); IMMATURE GRANULOCYTES 0.3 % (0.0-5.0); MEAN CELL VOLUME 79.3 fL CALC (80.0-100.0); MEAN CORPUSCULAR HGB 25.1 pG CALC (26.0-32.0); MEAN CORPUSCULAR HGB CONC 31.7 g/dL CAL (32.0-36.0); NEUT# 3.19 thou/uL (2.00-7.15); RED BLOOD COUNT 4.26 mill/uL (4.20-5.60); RED CELL DISTRI WIDTH 15.6 % (11.5-15.5)
[2020-10-14 18:11] LABS: ALBUMIN 4.2 g/dL (3.2-5.0); ALKALINE PHOSPHATASE 122 u/l (38-126); ANION GAP 16 (6-22 (CALC)); BILIRUBIN, TOTAL 0.3 mg/dL (0.0-1.4); BUN 15 mg/dL (8-23); BUN/CREATININE RATIO 27 (12-20 (CALC)); CARBON DIOXIDE 23 mmol/l (22-30); CHLORIDE 92 mmol/l (95-108); CREATININE 0.5 mg/dL (0.5-1.0); GFR > 60 ML/MIN (>=60 (CALC)); GFR FOR AFR.AMER. > 60 ML/MIN (>=60 (CALC)); LIPASE 329 u/l (23-300); POTASSIUM 4.2 mmol/l (3.5-5.1); SGOT/AST 73 u/l (9-36); SODIUM 128 mmol/l (137-146); TOTAL PROTEIN 8.4 g/dL (6.3-8.2)
[2020-10-14 18:37] LABS: ACT PARTIAL THROMBO TIME 22.1 SECONDS (20.0-32.5); INTERNATIONAL NORMALIZED RATIO 1.1 RATIO (0.7-1.3); PROTHROMBIN TIME 10.9 SECONDS (9.0-12.5)
[2020-10-14 18:42] LABS: URINE BILIRUBIN - DIPSTICK NEGATIVE (NEGATIVE); URINE BLOOD DIPSTICK NEGATIVE (NEGATIVE); URINE COLOR YELLOW; URINE GLUCOSE - DIPSTICK 250 mg/dL (NEGATIVE); URINE KETONE NEGATIVE (NEGATIVE); URINE LEUK ESTERASE NEGATIVE (NEGATIVE); URINE PROTEIN - DIPSTICK NEGATIVE (NEG-TRACE); URINE SPECIFIC GRAVITY <=1.005; URINE UROBILINOGEN - DIPSTICK 0.2 E.U./dL (0.2)
[2020-10-14 18:44] LABS: URINE NITRITE - DIPSTICK NEGATIVE (Negative)
--- NOTE | 2020-10-14 19:06 | NUR ---
IN ROOM ALERT AND ORIENTED RESTING COMFORTABLE
--- NOTE | 2020-10-14 19:15 | NUR ---
ADMIT ORDERS CALLED TO ER BY YENI STEWART. FAXED TO PHARM.
--- NOTE | 2020-10-14 20:39 | NUR ---
PT RESTING AWARE OF PLANNED ADMISSION, NO NEW COMPLAINTS, OFFERED.
--- NOTE | 2020-10-14 21:07 | NUR ---
REPORT CALLED TO [facility] ON MED SURG
--- NOTE | 2020-10-14 21:17 | NUR ---
PT TO MED SURG ON TELE VIA WHEELCHAIR. ALL BELONGINGS SENT WITH PT
[2020-10-14 21:32] VITALS: BP 138/53
--- NOTE | 2020-10-14 21:32 | NUR ---
PT ARRIVED TO [facility] VIA WC ACCOMPANIED BY ED NURSE. PT APPEARS TO BE IN STABLE CONDITION, DENIES CHEST PAIN, REPORTS MILD NAUSEA, BUT IS ASKING FOR FOOD. ACCU-CHECK 306 AT THIS TIME. SHE C/O ITCHING, STATING THAT SHE "IS ALWAYS ITCHING FOR 15 YEARS NOW." V/S ASSESSED, PT ASSISTED TO RESTROOM AND BACK TO THE BED. ASSESSMENT COMPLETED AT THIS TIME AND PO FLUIDS PROVIDED. WILL NOTIFY PHYSICIAN O/C FOR ORDERS AND WILL PROVIDED TV DINNER. I DISCUSSED DIET/BROTH W/CRACKERS FOR NAUSEA, SHE REFUSED AND ASKED FOR A DINNER TRAY.
--- NOTE | 2020-10-14 23:35 | NUR ---
PT MEDICATED FOR HEADACHE AND SLEEP AIDE. PT C/O OF ITCHING, SAYS "I HAVE BEEN ITCHING FOR 15 YEARS BECAUSE OF THIS DIABETES." I OFFERED OTHER COMFORT MEDS/DENIED ANY OTHER NEEDS.
[2020-10-15 00:12] VITALS: BP 140/74
--- NOTE | 2020-10-15 01:00 | NUR ---
PT APPEARS TO BE RESTING AT THIS TIME. LIGHTS ARE OFF AND TV ON LOW. NO S/O DISTRESS NOTED, RESP EVEN AND NON-LABORED, EYES ARE CLOSED.
[2020-10-15 03:28] VITALS: BP 135/73
--- NOTE | 2020-10-15 05:35 | NUR ---
PT MEDICATED W/AM MEDICATIONS ORDERS PROVIDE AND BENEDRYL FOR ITCHINESS. LAB ENTERING ROOM AT THIS TIME, PT DENIES ANY OTHER NEEDS.
[2020-10-15 06:18] LABS: HEMATOCRIT 32.1 % (37.0-47.0); HEMOGLOBIN 9.9 g/dl (12.0-16.0); IMMATURE GRANULOCYTES 0.2 % (0.0-5.0); MEAN CELL VOLUME 79.3 fL CALC (80.0-100.0); MEAN CORPUSCULAR HGB 24.4 pG CALC (26.0-32.0); MEAN CORPUSCULAR HGB CONC 30.8 g/dL CAL (32.0-36.0); NEUT# 1.95 thou/uL (2.00-7.15); RED BLOOD COUNT 4.05 mill/uL (4.20-5.60); RED CELL DISTRI WIDTH 15.5 % (11.5-15.5)
[2020-10-15 06:22] LABS: ALBUMIN 3.7 g/dL (3.2-5.0); ALKALINE PHOSPHATASE 103 u/l (38-126); ANION GAP 13 (6-22 (CALC)); BILIRUBIN, TOTAL 0.3 mg/dL (0.0-1.4); BUN 15 mg/dL (8-23); BUN/CREATININE RATIO 26 (12-20 (CALC)); CARBON DIOXIDE 25 mmol/l (22-30); CHLORIDE 95 mmol/l (95-108); CHOLESTEROL HDL RATIO 11.6 (<4.4 (CALC)); CREATININE 0.6 mg/dL (0.5-1.0); GFR > 60 ML/MIN (>=60 (CALC)); GFR FOR AFR.AMER. > 60 ML/MIN (>=60 (CALC)); HDL CHOLESTEROL 22 mg/dL (>=40); MAGNESIUM 1.4 mg/dL (1.6-2.3); POTASSIUM 4.6 mmol/l (3.5-5.1); SGOT/AST 53 u/l (9-36); SODIUM 129 mmol/l (137-146); TOTAL CHOLESTEROL 255 mg/dl (0-199); TOTAL PROTEIN 7.1 g/dL (6.3-8.2)
[2020-10-15 06:29] LABS: VLDL CHOLESTROL 262 mg/dl (1-41 (CALC))
[2020-10-15 06:30] LABS: TOTAL TRIGLYCERIDES 1312 mg/dl (30-149)
[2020-10-15 07:17] VITALS: BP 123/72
--- NOTE | 2020-10-15 09:00 | NUR ---
PT AWAKE, ALERT, AMBULATORY IN ROOM. LUNGS CLEAR, RA. NO COMPLAINT OF CHEST PAIN OR SHORTNESS OF BREATH. MAGNESIUM INFUSING, SLOWED PER BURNING TO IV SITE.
[2020-10-15 10:30] VITALS: BP 107/63
--- NOTE | 2020-10-15 13:21 | NUR ---
PT SEEN OOB IN CHAIR TODAY, NO ACUTE DISTRESS. PT HAS BEEN TREATED FOR HEADACHE WITH TYLENOL AND ITCHING WITH BENADRYL.
[2020-10-15 16:30] VITALS: BP 130/62
--- NOTE | 2020-10-15 17:36 | NUR ---
PT CONTINUES WITH ELEVATED BLOOD SUGARS, TREATED ORDERED. PT CONTINUES AMBULATORY IN ROOM WITH STEADY GAIT.
--- NOTE | 2020-10-15 19:20 | NUR ---
REPORT GIVEN BY KATHLEEN. PATIENT RESTING IN BED WATCHING TV. RESP EVEN AND UNLABORED. NO S/S OF DISTRESS. IV SALINE LOCKED. ALERT AND ORIENTED X 4. PEDAL PULSES WEAK. NSR ON TELE. PLAN OF CARE DISCUSSED. PATIENT INFORMED TO CALL WITH ANY QUESTIONS OR CONCERNS.
--- NOTE | 2020-10-15 19:38 | NUR ---
PATIENT REQUESTING IBPROFEN AND BENEDRYL AT THIS TIME. GIVEN PER MD ORDERS. BEDTIME SNACK GIVEN.
[2020-10-15 20:00] VITALS: BP 169/68
--- NOTE | 2020-10-15 20:55 | NUR ---
PATIENT ACCU CHECK 404, CALLED. NEW ORDERS GIVEN FOR LEVEMIR 10 UNITS QHS AND TO FOLLOW HUMALOG HIGH-DOSE THAT IS CURRENTLY ORDERED. CHART REVIEWED WITH MD, REGARDING HISTORY OF INSULIN GIVEN. ORDER RBVO AND FAXED TO PHARMACY.
[2020-10-16] VITALS: BP 143/80
--- NOTE | 2020-10-16 00:07 | NUR ---
PATIENT RESTING WITH EYES CLOSED. RESP EVEN AND UNLABORED. NO S/S OF DISTRESS NOTED. FALL AND SAFTEY PRECAUTIONS
[2020-10-16 03:16] VITALS: BP 123/75
--- NOTE | 2020-10-16 04:08 | NUR ---
PATIENT REQUESTING BENADRYL AT THIS TIME. FALL AND SAFTEY PRECAUTIONS IN PLACE. NO S/S OF DISTRESS NOTED.
[2020-10-16 04:57] LABS: HEMATOCRIT 33.7 % (37.0-47.0); HEMOGLOBIN 10.5 g/dl (12.0-16.0); MEAN CELL VOLUME 78.4 fL CALC (80.0-100.0); MEAN CORPUSCULAR HGB 24.4 pG CALC (26.0-32.0); MEAN CORPUSCULAR HGB CONC 31.2 g/dL CAL (32.0-36.0); RED BLOOD COUNT 4.3 mill/uL (4.20-5.60); RED CELL DISTRI WIDTH 15.5 % (11.5-15.5)
[2020-10-16 05:26] LABS: ANION GAP 15 (6-22 (CALC)); BUN 15 mg/dL (8-23); BUN/CREATININE RATIO 33 (12-20 (CALC)); CARBON DIOXIDE 24 mmol/l (22-30); CHLORIDE 96 mmol/l (95-108); CREATININE 0.5 mg/dL (0.5-1.0); GFR > 60 ML/MIN (>=60 (CALC)); GFR FOR AFR.AMER. > 60 ML/MIN (>=60 (CALC)); MAGNESIUM 1.5 mg/dL (1.6-2.3); POTASSIUM 4.5 mmol/l (3.5-5.1); SODIUM 130 mmol/l (137-146)
[2020-10-16 07:53] VITALS: BP 111/69
--- NOTE | 2020-10-16 09:55 | NUR ---
PT AMBULATORY IN ROOM WITHOUT DIFFICULTY. LUNGS CLEAR, RA. PT STATES THAT SHE DID HAVE SECONDS OF CHEST PRESSURE THIS MORNING, BUT THAT IT WENT AWAY QUICKLY IT CAME. BS CONTINUES ELEVATED, TREATED PER SCALE.
[2020-10-16] MEDS ORDERED: NOVOLIN N100 UNIT SC (11:14)
[2020-10-16] MEDS ORDERED: TRICOR48 MG PO (11:14)
[2020-10-16] MEDS ORDERED: ASPIRIN 81 LOW81 MG PO (11:14)
[2020-10-16 11:24] VITALS: BP 128/61
--- NOTE | 2020-10-16 13:30 | NUR ---
PT IS DISCHARGED TO HOME AT THIS TIME. PT VERBALIZED UNDERSTANDING OF DC INSTRUCTIONS, IS NOW WAITING ON HER TO ARRIVE TO TAKE HER HOME. PT IS IN STABLE CONDITION.
--- NOTE | 2020-10-16 13:43 | NUR ---
PT TAKEN BY WHEELCHAIR TO VEHICLE. PT THANKS STAFF HE LEAVES.
== END 2020-10-16 13:43 | disposition home or self-care (01) | DRG 313 ==
LOC: ED 17:17 → ED-I 19:12 → ED 19:25 → MS2 19:26
PROVIDERS: Emergency Medicine; Nurse Practitioner; ADMIT Internal Medicine; ATTEND Internal Medicine
DX: R07.9 Chest pain, unspecified (principal); E87.1 Hypo-osmolality and hyponatremia; E11.65 Type 2 diabetes mellitus with hyperglycemia; E83.42 Hypomagnesemia; E78.1 Pure hyperglyceridemia; I10 Essential (primary) hypertension; I25.10 Atherosclerotic heart disease of native coronary artery without angina pectoris; E03.9 Hypothyroidism, unspecified; D64.9 Anemia, unspecified; K21.9 Gastro-esophageal reflux disease without esophagitis; G25.81 Restless legs syndrome; Z79.84 Long term (current) use of oral hypoglycemic drugs; Z95.5 Presence of coronary angioplasty implant and graft; Z20.822 Contact with and (suspected) exposure to COVID-19
CPT/HCPCS: G0378; J1650; J1756; J3475; S0164

== ENCOUNTER 2021-09-04 03:10 | Emergency (ER) | payer OTHER ==
[~2021-09-04] VITALS: Ht 157.5 cm; Wt 65.0 kg
[~2021-09-04 03:10] MED LIST changes: +ASPIRIN 81 LOW81 MG PO; +NOVOLIN N100 UNIT SC; +TRICOR48 MG PO
[2021-09-04 03:24] VITALS: BP 123/68
[2021-09-04 03:31] VITALS: BP 112/54
[2021-09-04 04:25] LABS: HEMATOCRIT 32.9 % (37.0-47.0); HEMOGLOBIN 10.6 g/dl (12.0-16.0); IMMATURE GRANULOCYTES 0.3 % (0.0-5.0); MEAN CELL VOLUME 89.6 fL CALC (80.0-100.0); MEAN CORPUSCULAR HGB 28.9 pG CALC (26.0-32.0); MEAN CORPUSCULAR HGB CONC 32.2 g/dL CAL (32.0-36.0); NEUT# 2.47 thou/uL (2.00-7.15); RED BLOOD COUNT 3.67 mill/uL (4.20-5.60); RED CELL DISTRI WIDTH 13.4 % (11.5-15.5)
[2021-09-04 04:31] VITALS: BP 138/66
[2021-09-04 04:31] LABS: ALBUMIN 4.1 g/dL (3.2-5.0); ALKALINE PHOSPHATASE 75 u/l (38-126); ANION GAP 14 (6-22 (CALC)); BUN 21 mg/dL (8-23); BUN/CREATININE RATIO 26 (12-20 (CALC)); CARBON DIOXIDE 23 mmol/l (22-30); CHLORIDE 102 mmol/l (95-108); CREATININE 0.8 mg/dL (0.5-1.0); GFR > 60 ML/MIN (>=60 (CALC)); GFR FOR AFR.AMER. > 60 ML/MIN (>=60 (CALC)); POTASSIUM 4.5 mmol/l (3.5-5.1); SGOT/AST 33 u/l (9-36); SODIUM 134 mmol/l (137-146); TOTAL PROTEIN 7.3 g/dL (6.3-8.2)
[2021-09-04 04:33] LABS: BILIRUBIN, TOTAL 0.2 mg/dL (0.0-1.4)
[2021-09-04 05:01] VITALS: BP 143/55
[2021-09-04] MEDS ORDERED: LORTAB 1010 MG PO (05:13)
[2021-09-04 05:22] VITALS: BP 143/55
== END 2021-09-04 05:22 | disposition home or self-care (01) | DRG 74 ==
LOC: ED 03:10
PROVIDERS: Emergency Medicine
DX: E11.42 Type 2 diabetes mellitus with diabetic polyneuropathy (principal); I10 Essential (primary) hypertension; Z79.4 Long term (current) use of insulin; Z79.84 Long term (current) use of oral hypoglycemic drugs

== ENCOUNTER 2022-06-11 17:56 | Emergency (ER) | payer OTHER ==
[~2022-06-11] VITALS: Ht 157.5 cm; Wt 68.0 kg
[2022-06-11 18:29] LABS: BASO% 0.5 % (0-3); EOS% 1.5 % (0-8); HEMATOCRIT 30.2 % (37.0-47.0); HEMOGLOBIN 9.7 g/dl (12.0-16.0); IMMATURE GRANULOCYTES 0.2 % (0.0-5.0); LYMPH% 32.9 % (15-41); MEAN CELL VOLUME 87.8 fL CALC (80.0-100.0); MEAN CORPUSCULAR HGB 28.2 pG CALC (26.0-32.0); MEAN CORPUSCULAR HGB CONC 32.1 g/dL CAL (32.0-36.0); MONO% 10.5 % (2-13); NEUT# 3.62 thou/uL (2.00-7.15); NEUT% 54.4 % (42-76); RED BLOOD COUNT 3.44 mill/uL (4.20-5.60); RED CELL DISTRI WIDTH 13.6 % (11.5-15.5)
[2022-06-11 18:46] LABS: ALBUMIN 4.2 g/dL (3.2-5.0); ALKALINE PHOSPHATASE 90 u/l (38-126); ANION GAP 11 (6-22 (CALC)); BUN 12 mg/dL (8-23); BUN/CREATININE RATIO 17 (12-20 (CALC)); CARBON DIOXIDE 26 mmol/l (22-30); CHLORIDE 105 mmol/l (95-108); CREATININE 0.7 mg/dL (0.5-1.0); GFR FOR AFR.AMER. > 60 ML/MIN (>=60 (CALC)); GFR OTHER RACES > 60 ML/MIN (>=60 (CALC)); LIPASE 140 u/l (23-300); MAGNESIUM 1.3 mg/dL (1.6-2.3); POTASSIUM 4.3 mmol/l (3.5-5.1); SGOT/AST 39 u/l (9-36); SODIUM 137 mmol/l (137-146); TOTAL PROTEIN 7.4 g/dL (6.3-8.2)
[2022-06-11 18:48] LABS: BILIRUBIN, TOTAL 0.1 mg/dL (0.0-1.4)
[2022-06-11 18:49] LABS: D-DIMER 0.44 mg/L (0.19-0.60)
[2022-06-11 18:53] LABS: ACT PARTIAL THROMBO TIME 24.5 SECONDS (20.0-32.5); INTERNATIONAL NORMALIZED RATIO 1.1 RATIO (0.7-1.3); PROTHROMBIN TIME 11.1 SECONDS (9.0-12.5)
[2022-06-11 20:08] LABS: CPK 70 u/l (30-165)
[2022-06-11] MEDS ORDERED: MAGOX 400400 MG PO ×2 (20:55→21:52)
[2022-06-11 21:56] VITALS: BP 146/82
== END 2022-06-11 21:58 | disposition home or self-care (01) | DRG 556 ==
LOC: ED 17:56
PROVIDERS: Internal Medicine
PROC: 05H933Z Insertion of Infusion Device into Right Brachial Vein, Percutaneous Approach (ICD-10-PCS; principal; 2022-06-11)
DX: M79.662 Pain in left lower leg (principal); D64.9 Anemia, unspecified; R00.2 Palpitations; E11.9 Type 2 diabetes mellitus without complications; Z79.84 Long term (current) use of oral hypoglycemic drugs; Z95.5 Presence of coronary angioplasty implant and graft; I10 Essential (primary) hypertension; Z85.43 Personal history of malignant neoplasm of ovary

== ENCOUNTER 2022-11-13 12:19 | Emergency (ER) | payer OTHER ==
[~2022-11-13] VITALS: Ht 157.5 cm; Wt 63.8 kg
[~2022-11-13 12:19] MED LIST changes: +MAGOX 400400 MG PO
[2022-11-13] MEDS ORDERED: KEFLEX500 MG PO (13:45)
[2022-11-13] MEDS ORDERED: MUPIROCIN21 TOP (13:45)
[2022-11-13 13:49] VITALS: BP 123/48
== END 2022-11-13 13:55 | disposition home or self-care (01) | DRG 607 ==
LOC: ED 12:19
PROC: 0HBRXZZ Excision of Toe Nail, External Approach (ICD-10-PCS; principal; 2022-11-13)
DX: L60.0 Ingrowing nail (principal); I10 Essential (primary) hypertension; E11.40 Type 2 diabetes mellitus with diabetic neuropathy, unspecified; Z79.4 Long term (current) use of insulin; Z79.84 Long term (current) use of oral hypoglycemic drugs

== ENCOUNTER 2022-11-20 10:02 | Emergency (ER) | payer OTHER ==
[~2022-11-20] VITALS: Ht 157.5 cm; Wt 68.0 kg
[~2022-11-20 10:02] MED LIST changes: +KEFLEX500 MG PO; +MUPIROCIN21 TOP
[2022-11-20 10:25] VITALS: BP 145/59
[2022-11-20 10:30] VITALS: BP 121/72
[2022-11-20 10:46] VITALS: BP 149/53
[2022-11-20] MEDS ORDERED: DOXY-CAPS100 MG PO (10:51)
[2022-11-20] MEDS ORDERED: OMNI-PAC300 MG PO (10:51)
[2022-11-20 11:00] VITALS: BP 137/59
[2022-11-20 11:01] VITALS: BP 137/59
[2022-11-20] MEDS ORDERED: TRAMADOL HYDROC50 M1 PO (11:15)
== END 2022-11-20 11:05 | disposition home or self-care (01) | DRG 607 ==
LOC: ED 10:02
DX: L60.0 Ingrowing nail (principal); I10 Essential (primary) hypertension; E11.40 Type 2 diabetes mellitus with diabetic neuropathy, unspecified; E78.00 Pure hypercholesterolemia, unspecified; Z79.84 Long term (current) use of oral hypoglycemic drugs; Z79.4 Long term (current) use of insulin

== ENCOUNTER 2023-11-10 14:37 | Emergency (ER) | payer OTHER ==
[2023-11-10] VITALS (10 sets, daily range): BP systolic 78–146; BP diastolic 55–121
[~2023-11-10] VITALS: Ht 157.5 cm; Wt 73.0 kg
[~2023-11-10 14:37] MED LIST changes: +DOXY-CAPS100 MG PO; +LORTAB 5/3255 MG PO; +METHOCARBAMOL500 MG PO; +NAPROXEN500 MG PO; +OMNI-PAC300 MG PO; +TRAMADOL HYDROC50 M1 PO
[2023-11-10] MEDS ORDERED: SODIUM CHLORIDE 0.9% 1,000 ML IV ONE (14:50)
[2023-11-10] MEDS ORDERED: ONDANSETRON HCl 4 MG/2 ML SDV IV ONE (14:50)
[2023-11-10 15:14] LABS: BASO% 0.5 % (0-3); EOS% 1.6 % (0-8); HEMATOCRIT 32.8 % (37.0-47.0); HEMOGLOBIN 10.4 g/dl (12.0-16.0); IMMATURE GRANULOCYTES 0.2 % (0.0-5.0); LYMPH% 29.4 % (15-41); MEAN CELL VOLUME 88.2 fL CALC (80.0-100.0); MEAN CORPUSCULAR HGB CONC 31.7 g/dL CAL (32.0-36.0); MONO% 8.1 % (2-13); NEUT# 3.73 thou/uL (2.00-7.15); NEUT% 60.2 % (42-76); RED BLOOD COUNT 3.72 mill/uL (4.20-5.60); RED CELL DISTRI WIDTH 15.4 % (11.5-15.5)
[2023-11-10 15:26] LABS: URINE BILIRUBIN - DIPSTICK Negative (NEGATIVE); URINE BLOOD DIPSTICK Negative (NEGATIVE); URINE COLOR Yellow; URINE GLUCOSE - DIPSTICK Negative (NEGATIVE); URINE KETONE Negative (NEGATIVE); URINE LEUK ESTERASE Negative (NEGATIVE); URINE NITRITE - DIPSTICK Negative (Negative); URINE PH 5.5 (4.5-8.0); URINE PROTEIN - DIPSTICK Negative (NEG-TRACE); URINE SPECIFIC GRAVITY >=1.030; URINE UROBILINOGEN - DIPSTICK 0.2 E.U./dL (0.2)
[2023-11-10 15:33] LABS: ALBUMIN 4.3 g/dL (3.2-5.0); BILIRUBIN, TOTAL 0.3 mg/dL (0.02-1.3); CREATININE 0.6 mg/dL (0.5-1.0); POTASSIUM 4.8 mmol/l (3.5-5.1)
[2023-11-10] MEDS ORDERED: ONDANSETRON4 MG PO (17:16)
== END 2023-11-10 17:23 | disposition home or self-care (01) | DRG 392 ==
LOC: ED 14:37
PROVIDERS: Family Medicine
DX: K52.9 Noninfective gastroenteritis and colitis, unspecified (principal); I10 Essential (primary) hypertension; E11.40 Type 2 diabetes mellitus with diabetic neuropathy, unspecified; Z79.84 Long term (current) use of oral hypoglycemic drugs

== ENCOUNTER 2024-05-12 03:50 | Emergency (ER) | payer OTHER ==
[~2024-05-12] VITALS: Ht 157.5 cm; Wt 70.0 kg
[~2024-05-12 03:50] MED LIST changes: +ONDANSETRON4 MG PO
[2024-05-12 03:57] VITALS: BP 148/121
[2024-05-12 04:01] VITALS: BP 132/78
[2024-05-12] MEDS ORDERED: GABAPENTIN 300 MG/CAP PO ONE ×2 (04:05)
[2024-05-12] MEDS ORDERED: GABAPENTIN300 M2 PO (04:07)
[2024-05-12 04:16] VITALS: BP 186/127
[2024-05-12 04:17] VITALS: BP 156/94
== END 2024-05-12 04:22 | disposition home or self-care (01) | DRG 951 ==
LOC: ED 03:50
DX: Z76.0 Encounter for issue of repeat prescription (principal); E11.42 Type 2 diabetes mellitus with diabetic polyneuropathy; T42.6X6A Underdosing of other antiepileptic and sedative-hypnotic drugs, initial encounter; Z91.128 Patient's intentional underdosing of medication regimen for other reason; Z79.4 Long term (current) use of insulin; Z79.84 Long term (current) use of oral hypoglycemic drugs